=== PATIENT | male | born 1975 | race Caucasian/White ===

== ENCOUNTER → 2022-02-02 08:10 | Outpatient (CLI) | payer OTHER, SELFPAY ==
--- NOTE | ~2022-02-02 | US_ITS ---
US scrotum doppler INDICATION: Right testicular lumps with pain TECHNIQUE: Testicular sonogram utilizing grayscale and color Doppler FINDINGS: The testes are normal in size and appearance. No focal lesions are seen. The right testes measures 5.5 x 2.6 x 3.9 cm centimeters, and the left testis measures 4.6 x 3.1 x 3.3 cm cm. There is normal vascular flow to both testes. There is a small 7 mm extratesticular cyst on the right, possibly epididymal. There are small hydroceles. There is a left varicocele. IMPRESSION: 1. Left varicocele. 2: Small hydroceles. 3: 7 mm extratesticular cyst on the right, possibly epididymal. Reviewed, dictated and finalized at location A.
== END ==
PROVIDERS: PCP Internal Medicine; Visit Provider Clinical Nurse Specialist
DX: R22.9 Localized swelling, mass and lump, unspecified (principal); I86.1 Scrotal varices; N43.3 Hydrocele, unspecified
CPT/HCPCS: 76870; 93976

== ENCOUNTER 2022-08-01 08:18 | Outpatient (CLI) | payer OTHER, SELFPAY ==
[2022-08-01 11:54] LABS: Kit Draw Collected
== END 2022-08-01 08:19 | disposition home or self-care (01) ==
LOC: ANHGOSHLAB 08:20
PROVIDERS: PCP Internal Medicine; Visit Provider Clinical Nurse Specialist
DX: R53.83 Other fatigue (principal); Z13.220 Encounter for screening for lipoid disorders; Z13.228 Encounter for screening for other metabolic disorders
CPT/HCPCS: 36415